=== PATIENT | female | born 1990 | race Caucasian/White ===

== ENCOUNTER 2022-12-08 07:30 | Inpatient (IN) | payer OTHER, SELFPAY ==
[2022-12-08] VITALS (60 sets, daily range): BP systolic 56–142; BP diastolic 45–108; PULSE 52–101; RESP 12–18; TEMP 36.2–37; O2SAT 97–100; BMI 24.2
--- NOTE | 2022-12-08 08:27 | P.PNAN_ITS ---
Anes - Initial Pre Proc Eval Procedure: Operation Date: 12/08/22 12:00 Proposed Procedures p Repeat Section - Karey Valle MD Date/Time: 12/08/22 08:27 Surgeon: Karey Valle MD Pre Op Diagnosis: C/Section Patient Data Age: 32 Gender: F Height: Weight: Last Vital Signs Pulse 101 H 12/08/22 08:16 BP 120/82 12/08/22 08:16 Allergies Allergy/AdvReac Type Severity Reaction Status Date / Time latex Allergy Swelling Verified 11/29/22 13:28 Home Medications Medication Instructions Recorded Confirmed Type Classic 1 tab-cap PO DAILY 11/29/22 11/29/22 History aspirin 81 mg tablet 81 mg PO DAILY 11/29/22 11/29/22 History Patient hx anesthesia problems: none Family hx anesthesia problems: none Results Review: All pre-operative results and documents have been reviewed as part of the pre- operative evaluation. [facility] Past Medical History Medical History (Updated 12/08/22 @ 08:27 by Get Reyes MD) Gestational diabetes mellitus Surgical History Surgical History (Updated 12/08/22 @ 08:27 by Get Reyes MD) History of section Family History Family History Other Unknown family medical history Social History Social History Substance use: never Spiritual care concerns: No Anes - Eval Final PreProcedure Day of Procedure 12/08/22 08:27 Patient weight: normal Heart: regular rate and rhythm Lungs: clear to auscultation Airway: Mallampati scale class 1 Neurological: alert and oriented ASA classification: II Emergent: no Anesthetic plan: proceed Anesthesia type and monitoring: regional spinal and standard monitoring Results Review: All pre-operative results and documents have been reviewed as part of the pre- operative evaluation. Informed Consent: The patient's anesthetic plan and its attendant risks and benefits were discussed with the patient/family/POA. Questions were solicited and answers provided to the satisfaction of the patient/family/POA.
[2022-12-08 08:40] LABS: Basophils Percent Auto 0.5 % (0.2-1.2); Eosinophils Absolute Auto 0.1 K/mm3 (0-0.3); Eosinophils Percent Auto 0.9 % (0-4.4); Hematocrit 32.9 % (37.0-47.0); Hemoglobin 10.7 g/dL (12.0-15.0); Immature Granulocyte Absolute 0.05 K/mm3 (0.00-0.031); Immature Granulocyte Percent A 0.6 % (0-0.5); Lymphocytes Absolute Auto 1.84 K/mm3 (0.9-3.2); Lymphocytes Percent Auto 20.7 % (18.3-44.2); Mean Corpuscular HGB Conc 32.5 g/dl (32-36); Mean Corpuscular Hemoglobin 29.2 pg (26-34); Mean Corpuscular Volume 89.6 fl (80-100); Monocytes Absolute Auto 0.4 K/mm3 (0.1-0.6); Monocytes Percent Auto 4.6 % (2.6-8.5); Neutrophils Absolute Auto 6.5 K/mm3 (1.3-6.7); Neutrophils Percent Auto 72.7 % (45.5-73.1); Platelet Count Result 309 k/mm3 (150-375); Red Blood Count 3.67 M/mm3 (4.2-5.4); Red Cell Distribution Width 13.4 % (11.5-14.5); White Blood Count 8.9 K/mm3 (4.5-10.0)
[2022-12-08] MEDS: LACTATED RINGERS 1,000 ML 125 ML IV CONT (08:44)
--- NOTE | 2022-12-08 09:13 | PM.IMHP ---
H&P: HPI History of Present Illness Date/Time: 12/08/22 09:13 Chief Complaint: Term Narrative: 32-year-old multi with previous who presents at 37 weeks for repeat . She has oligohydramnios, gestational diabetes, placental abnormality. She understands the risk. She understands that injuries may occur the result hospitalization, more surgery, and severe illness. She understands there is risk of hemorrhage infection. Denies any nausea, vomiting, fever, chills. She denies any chest pain shortness of breath. She denies any contractions or loss of fluid. Review of Systems Review of Systems: All systems reviewed & are unremarkable except as noted in HPI and below Constitutional: Constitutional: Denies chills, Denies fatigue, Denies fever(s) and Denies weakness Eyes: Eyes: Denies blurry vision, Denies change in vision, Denies loss of peripheral vision, Denies loss of vision, Denies other visual disturbances and Denies eye pain ENT: Denies vertigo, Denies dizziness, Denies hearing loss, Denies mouth pain, Denies nasal obstruction, Denies neck mass and Denies neck pain Cardiovascular: Cardiovascular: Denies chest pain, Denies diaphoresis, Denies syncope, Denies leg edema and Denies dyspnea Respiratory: Respiratory: Denies chest congestion, Denies cough, Denies hemoptysis, Denies dyspnea and Denies wheezing Gastrointestinal: Gastrointestinal: Denies abdominal pain, Denies constipation, Denies diarrhea, Denies nausea and Denies vomiting Genitourinary: Genitourinary: Denies hematuria, Denies change in libido, Denies nocturia, Denies genital lesions, Denies flank pain and Denies urinary urgency Musculoskeletal: Musculoskeletal: Denies abnormal gait, Denies back pain, Denies myalgias, Denies arthralgias, Denies joint swelling, Denies muscle weakness and Denies neck pain Integumentary/Breasts: Skin/Breast: Denies swelling, Denies breast pain, Denies breast mass, Denies dry skin, Denies nipple discharge, Denies unusual bruising and Denies jaundice Neurologic: Denies Neuro-related abnormal movements, Denies Abnormal speech present, Denies abnormal gait, Denies behavioral changes, Denies confusion, Denies vertigo, Denies dizziness, Denies syncope, Denies loss of vision, Denies memory loss, Denies convulsions and Denies weakness Psychiatric: Psychiatric: Denies abnormal sleep pattern, Denies behavioral changes, Denies change in libido, Denies confusion, Denies depression, Denies anhedonia and Denies memory loss Endocrine: Endocrine: Reports no additional endocrine complaints, Denies change in libido and Denies fatigue Hematologic/Lymphatic: Hematologic/Lymphatic: Reports no additional hematologic/lymphatic complaints Allergic/Immunologic: Allergic/Immunologic: Reports no additional allergic/immunologic complaints and Denies wheezing PMFSH Past Medical History Medical History (Updated 12/08/22 @ 09:17 by Karey Valle MD) Gestational diabetes mellitus Surgical History Surgical History (Updated 12/08/22 @ 09:17 by Karey Valle MD) History of section Family History Family History Other Unknown family medical history Social History Social History Smoking status: Never smoker Substance use: never Lack of Transportation: No Lack of Food: Never True Current Housing: I Have Housing Concerned About Future Housing: No Difficulty Paying Gas/Electric Bills: No Difficulty Paying for Meds: No Currently Unemployed: No Education: Master's Degree or Higher Difficulty w/ Childcare or Family Care: No Spiritual care concerns: No Meds Home Medications and Allergies Home Medications Medication Instructions Recorded Confirmed Type Classic 1 tab-cap PO DAILY 11/29/22 11/29/22 History aspirin 81 mg tablet 81 mg PO DAILY 11/29/22 12/08/22 History Allergies
--- NOTE | 2022-12-08 09:20 | WPDHPUPDATE1 ---
History and Physical Update Update Date/Time: 12/08/22 09:20 History and Physical has been reviewed, including an updated exam of the patient. There are NO changes in the patient's condition. Risks, benefits, and alternatives have been discussed and questions answered. Patient agrees to proceed with procedure.
--- NOTE | 2022-12-08 10:36 | W.PM.PROC2 ---
Procedure Note - Detailed Date of Procedure 12/08/22 Pre-op Diagnosis Previous C/Section Post-op Diagnosis Same Procedure Performed Low-transverse section Surgeon Karey Valle MD Anesthesia Spinal Findings Normal gestational maternal anatomy, average size infant, normal Apgars. Description of Procedure The patient was taken the operating room. She was prepped and draped in dorsal supine position with a leftward tilt. This was done after spinal anesthetic was applied. A low-transverse skin incision was made and carried down till of the fascia with the knife. The fascial incision was made with the knife. The fascial incision was extended laterally with Mckeon scissors. The fascia was tented upward superiorly and inferiorly the rectus muscles were dissected off bluntly. The rectus muscles were the midline. The preperitoneal fat and peritoneum were dissected open bluntly at the superior aspect of the rectus muscles. The peritoneal incision was extended superior and inferior with good position of bladder. The uterine incision was made with a scalpel down to the level of the amniotic cavity. The amniotic cavity was entered bluntly. The was delivered. The cord was clamped and cut and the was handed off to waiting pediatric staff. Cord bloods were obtained. The placenta was removed manually. The uterus was exteriorized. The uterus was cleared of all clots, debris and membranes. The uterus was closed in 0 Vicryl running lock fashion. An imbricating over a was placed along the incision line as well. The uterus was returned to the abdomen. The gutters were cleared of all clots and debris. The fascia was closed with 0 Vicryl running fashion. The subcutaneous tissue was irrigated pinpoint bleeders were cauterized. The skin was closed with subcuticular absorbable jose alberto. The skin incision line was covered with glue. The patient tolerated the procedure well. She has taken recovery room in stable condition. Sponge lap and needle counts were correct x2. Complications No immediate complications Condition Stable Disposition PACU
[2022-12-08 14:19] LABS: Rapid Plasma Reagin Non-Reactive (NonReactive)
--- NOTE | 2022-12-08 15:10 | OBPPTRN ---
Patient transferred to post room # 289 via stretcher accompanied by fob. Support person present and both pt and spouse recipients of such instructions and no barriers to learning identified at this time. PT introductions made and plan of care discussed per post op c section, pain management, breast pumping, daily care activities and baby transferred to [facility]. Pt received such instructions per one to one discussion, mom baby care guide and demonstrations this shift. Oriented to unit, room, information board, rooming in, admission packet and security measures. Patient verbalizes understanding.
[2022-12-08] MEDS: KETOROLAC 30 MG/ML VIAL (*BKC) IV PUSH ×2 (15:57→22:35)
[2022-12-08] MEDS: SIMETHICONE 80 MG TAB.CHEW PO (15:59)
[2022-12-08] MEDS: DOCUSATE SODIUM 100 MG CAPSULE PO (15:59)
[2022-12-08] MEDS: HYDROcodone/acetaminophen (*CRX) 5-325 MG TABLET 1 TAB PO (16:00)
[2022-12-08] MEDS: LANOLIN (LANSINOH) 7.5 GM CREAM 1 APPLIC TOPICAL (16:01)
[2022-12-08] MEDS: LIDOCAINE 5% PATCH 1 PATCH TRANSDERM (18:52)
[2022-12-08] MEDS: DEXTROSE 5%/0.45% SOD CHL 1,000 ML 125 ML IV CONT (20:06)
[2022-12-08] MEDS: HYDROcodone/acetaminophen (*CRX) 10-325 MG TABLET 1 TAB PO (20:19)
[2022-12-08] MEDS: diphenhydrAMINE HCl CAP 25 MG CAPSULE (22:35)
[2022-12-09 04:00] VITALS: BP 104/62; PULSE 79; RESP 16; TEMP 36.6; O2SAT 97
[2022-12-09 05:14] LABS: Basophils Percent Auto 0.3 % (0.2-1.2); Eosinophils Absolute Auto 0.1 K/mm3 (0-0.3); Hematocrit 31.7 % (37.0-47.0); Hemoglobin 10.1 g/dL (12.0-15.0); Immature Granulocyte Absolute 0.07 K/mm3 (0.00-0.031); Immature Granulocyte Percent A 0.6 % (0-0.5); Lymphocytes Absolute Auto 2.26 K/mm3 (0.9-3.2); Lymphocytes Percent Auto 19.5 % (18.3-44.2); Mean Corpuscular HGB Conc 31.9 g/dl (32-36); Mean Corpuscular Hemoglobin 29.3 pg (26-34); Mean Corpuscular Volume 91.9 fl (80-100); Mean Platelet Volume 9.3 fl (7.4-10.4); Monocytes Absolute Auto 0.6 K/mm3 (0.1-0.6); Monocytes Percent Auto 5.1 % (2.6-8.5); Neutrophils Absolute Auto 8.5 K/mm3 (1.3-6.7); Neutrophils Percent Auto 73.5 % (45.5-73.1); Platelet Count Result 273 k/mm3 (150-375); Red Blood Count 3.45 M/mm3 (4.2-5.4); Red Cell Distribution Width 13.4 % (11.5-14.5); White Blood Count 11.6 K/mm3 (4.5-10.0)
[2022-12-09] MEDS: SIMETHICONE 80 MG TAB.CHEW PO (07:30)
[2022-12-09] MEDS: DOCUSATE SODIUM 100 MG CAPSULE PO ×2 (07:30→16:49)
[2022-12-09] MEDS: HYDROcodone/acetaminophen (*CRX) 5-325 MG TABLET 1 TAB PO ×2 (07:30→19:12)
[2022-12-09] MEDS: MULTIVIT/MIN/PREN/FOL AC/IRON TABLET 1 TAB PO (07:30)
[2022-12-09] MEDS: IBUPROFEN 600 MG TABLET PO ×2 (07:30→19:14)
--- NOTE | 2022-12-09 08:42 | WPDANLDPN2 ---
Anes-Prog Note L&D Date/Time: 12/09/22 08:42 Comfortable throughout: section Neuraxial method: spinal Epidural/Spinal procedure site: clean & non-tender Neuro status: Neuro function grossly intact. Cardiovascular status: normal Respiratory status: normal Airway patency: baseline Mental status: baseline Post-Op hydration status: normal Vital Signs: Last Vital Signs Temp 36.6 C 12/09/22 04:00 Pulse 79 12/09/22 04:00 Resp 16 12/09/22 04:00 BP 104/62 12/09/22 04:00 Pulse Ox 97 12/09/22 04:00 O2 Del Method Room Air 12/08/22 18:30 Pain score (VAS): 3 I/O: Intake & Output 12/08/22 12/09/22 12/09/22 23:59 07:59 15:59 Intake Total 1000 Output Total 600 1200 Balance 400 -1200 Post-procedural complaints: none Patient feedback: Patient satisfied with anesthetic care.
--- NOTE | 2022-12-09 08:42 | WPDANLDNPN2 ---
Anes-Prog Note L&D-Neuraxial Date/Time: 12/09/22 08:42 Neuraxial medications: intrathecal PF morphine Opiod-related complaints: none Patient feedback: Patient satisfied with post-operative pain management.
--- NOTE | 2022-12-09 08:52 | P.PNOB_ITS ---
OB - PN: Subj Subjective Date/time seen: 12/09/22 08:52 Interval history: POD#1 s/p RLTCS Baby boy transferred to [facility] for respiratory support, ok for pass to visit baby doing well, minimal bleeding tolerating regular diet voiding spontaneously OB - PN: Obj Data Labs 12/09/22 03:52 Labs: Laboratory Results - last 24 hr 12/08/22 12/09/22 07:58 03:52 WBC 8.9 11.6 H RBC 3.67 L 3.45 L Hgb 10.7 L 10.1 L Hct 32.9 L 31.7 L MCV 89.6 91.9 MCH 29.2 29.3 MCHC 32.5 31.9 L RDW 13.4 13.4 Plt Count 309 273 MPV 9.0 9.3 Immature Gran % (Auto) 0.6 H 0.6 H Neut % (Auto) 72.7 73.5 H Lymph % (Auto) 20.7 19.5 Divide % (Auto) 4.6 5.1 Eos % (Auto) 0.9 1.0 Baso % (Auto) 0.5 0.3 Lymph # (Auto) 1.84 2.26 Divide # (Auto) 0.4 0.6 Eos # (Auto) 0.1 0.1 Baso # (Auto) 0.0 0.0 Abs Immat Gran (auto) 0.05 H 0.07 H Absolute Neuts (auto) 6.5 8.5 H Absolute Nucleated RBC 0.0 0.0 Nucleated RBC % 0.0 0.0 RPR Non-reactive Blood Type B Positive Antibody Screen Positive Antibody Identification Cold Auto AB Antigen Identification Cancelled BILLIE, IgG Interpret Negative BILLIE, Poly Interpret Negative BILLIE, Complement Interp Negative OB - PN A/P Plan day: 1 Plan: routine care Time Spent With Patient Time: Total time spent is greater than 50% in coordination of care (as documented) at patient's floor/unit and/or counseling patient: Review of Systems Review of Systems: All systems reviewed & are unremarkable except as noted in HPI and below Exam Const: General: comfortable, no acute distress, alert and awake Orientati on/consciousness: patient oriented x3 Resp: Effort & Inspection: normal respiratory effort GI: GI Palp: Yes Soft to palpation Other: incision c/d/i
[2022-12-09 09:00] VITALS: BP 118/62; PULSE 64; RESP 14; TEMP 36.7; O2SAT 100
[2022-12-09] MEDS: ASPIRIN 81 MG CHEWABLE TABLET PO (11:00)
[2022-12-09] MEDS: HYDROcodone/acetaminophen (*CRX) 10-325 MG TABLET 1 TAB PO ×3 (11:00→22:13)
--- NOTE | 2022-12-09 11:10 | PC.NURSE ---
1110 Pt left unit in wheelchair accompanied by to travel to [facility] to visit.
[2022-12-09] MEDS: LIDOCAINE 5% PATCH 1 PATCH TRANSDERM (19:15)
[2022-12-09 20:00] VITALS: BP 125/88; PULSE 81; RESP 18; TEMP 36.6; O2SAT 100
[2022-12-10] MEDS: HYDROcodone/acetaminophen (*CRX) 5-325 MG TABLET 1 TAB PO ×2 (01:16→04:28)
--- NOTE | 2022-12-10 08:00 | P.PNOB_ITS ---
OB - PN: Subj Subjective Date/time seen: 12/10/22 08:00 Interval history: POD#2 s/p RLTCS Baby boy doing well at [facility] for resp support doing well, minimal bleeding tolerating regular diet voiding spontaneously desires d/c home today OB - PN: Obj Data Labs 12/09/22 03:52 OB - PN A/P Plan day: 2 Plan: discharge home Comments: follow up in 1 week for incision check Time Spent With Patient Time: Total time spent is greater than 50% in coordination of care (as documented) at patient's floor/unit and/or counseling patient: Review of Systems Review of Systems: All systems reviewed & are unremarkable except as noted in HPI and below Exam Const: General: comfortable, no acute distress, alert and awake Resp: Effort & Inspection: normal respiratory effort GI: GI Palp: Yes Soft to palpation Other: incision c/d/i
--- NOTE | 2022-12-10 08:03 | PM.OBDSVD ---
DS: Admitting Diagnosis Discharge Date 12/10/22 Admitting Diagnosis repeat c section, oligohydramnios OB - DS: Summary OB Procedures : None OB Procedures Intrapartum: OB Procedures: : None Peripartum Data Procedures: Procedures Operation Date: 12/08/22 12:00 Actual Procedure Side Surgeon p Repeat Section Not Applicable Karey Valle MD Time Spent with Patient Time attestation: Total time spent providing and/or coordinating discharge services: Discharge Plan Discharge Attending physician on discharge: Alfonzo Mead Discharging Clinician: Alfonzo Mead Patient Disposition: Home, Self-Care Activity: may shower, may drive after 2 weeks, as tolerated and pelvic rest Diet: as tolerated Wound Care Instructions: incision open to air Patient Instructions: Antibiotic Form Stand Alone Forms: General Discharge Information Follow-up/Referrals: Karey Valle MD [Physician] - 1 Week (Incision check) Discharge Medications: New hydrocodone-acetaminophen 5-325 mg Tablet 1 tablet PO Q3H PRN (Reason: Moderate Pain (4-6)) Qty: 20 0RF Continued Classic 1 tab-cap PO DAILY Discontinued Adult Aspirin 81 mg Tablet 81 mg PO DAILY Date of admission: 12/08/22 07:30 Primary Care Provider: PHYSICIAN,HEALTH INFORMATION SYSTEMS TECHNICIAN Admitting Provider: Karey Valle Attending physician on admission: Karey Valle Condition: Stable
[2022-12-10] MEDS: HYDROcodone/acetaminophen (*CRX) 10-325 MG TABLET 1 TAB PO (08:30)
[2022-12-10] MEDS: IBUPROFEN 600 MG TABLET PO (08:30)
[2022-12-10] MEDS: SIMETHICONE 80 MG TAB.CHEW PO (08:30)
[2022-12-10] MEDS: MULTIVIT/MIN/PREN/FOL AC/IRON TABLET 1 TAB PO (08:30)
[2022-12-10] MEDS: DOCUSATE SODIUM 100 MG CAPSULE PO (08:30)
[2022-12-10] MEDS: ASPIRIN 81 MG CHEWABLE TABLET PO (08:30)
[2022-12-10 10:03] VITALS: BP 134/79; PULSE 99; RESP 16; TEMP 36.7; O2SAT 100
--- NOTE | 2022-12-12 08:04 | P.PNOB_ITS ---
OB - Triage/Final Diagnosis Visit Information Comments/Additional reasons for admission: I have assessed the risk for this patient, Bro Lara, and determined that she would benefit from observation care. Evaluation Laboratory results: Laboratory Tests 12/08/22 12/09/22 07:58 03:52 WBC 8.9 11.6 H RBC 3.67 L 3.45 L Hgb 10.7 L 10.1 L Hct 32.9 L 31.7 L MCV 89.6 91.9 MCH 29.2 29.3 MCHC 32.5 31.9 L RDW 13.4 13.4 Plt Count 309 273 MPV 9.0 9.3 Immature Gran % (Auto) 0.6 H 0.6 H Neut % (Auto) 72.7 73.5 H Lymph % (Auto) 20.7 19.5 Loving % (Auto) 4.6 5.1 Eos % (Auto) 0.9 1.0 Baso % (Auto) 0.5 0.3 Lymph # (Auto) 1.84 2.26 Loving # (Auto) 0.4 0.6 Eos # (Auto) 0.1 0.1 Baso # (Auto) 0.0 0.0 Abs Immat Gran (auto) 0.05 H 0.07 H Absolute Neuts (auto) 6.5 8.5 H Absolute Nucleated RBC 0.0 0.0 Nucleated RBC % 0.0 0.0 RPR Non-reactive Blood Type B Positive Antibody Screen Positive Antibody Identification Cold Auto AB Antigen Identification Cancelled BILLIE, IgG Interpret Negative BILLIE, Poly Interpret Negative BILLIE, Complement Interp Negative Final Diagnosis (1) History of section: Code(s): Z98.891 - History of uterine scar from previous surgery Status: Acute (2) Oligohydramnios: Code(s): O41.00X0 - Oligohydramnios, unspecified trimester, not applicable or unspecified Status: Acute
== END 2022-12-10 10:50 | disposition home or self-care (01) | DRG 787 ==
LOC: ANHOB2 12-10 10:11 → ANHLDR 12-12 08:01 → ANHOB2 12-12 08:01
PROVIDERS: Admitting Provider Obstetrics & Gynecology; Visit Provider Obstetrics & Gynecology
PROC: 10D00Z1 Extraction of Products of Conception, Low, Open Approach (ICD-10-PCS; CPT 59514; principal; 2022-12-08 12:00)
DX: O34.211 Maternal care for low transverse scar from previous cesarean delivery (principal); O41.03X0 Oligohydramnios, third trimester, not applicable or unspecified; Z37.0 Single live birth; Z3A.37 37 weeks gestation of pregnancy; O24.429 Gestational diabetes mellitus in childbirth, unspecified control; O43.93 Unspecified placental disorder, third trimester
CPT/HCPCS: 36415; 81479; 85025; 86592; 86850; 86860; 86870; 86880; 86900; 86901; 86902; 86971; A9270; J1100; J1885; J2274; J2405; J7120

== ENCOUNTER 2023-01-03 04:59 | Emergency (ER) | payer OTHER, SELFPAY ==
[2023-01-03 05:20] LABS: Hematocrit 48.9 % (37.0-47.0); Hemoglobin 15.6 g/dL (12.0-15.0); Mean Corpuscular HGB Conc 31.9 g/dl (32-36); Mean Corpuscular Hemoglobin 28.3 pg (26-34); Mean Corpuscular Volume 88.6 fl (80-100); Mean Platelet Volume 7.9 fl (7.4-10.4); Platelet Count Result 450 k/mm3 (150-375); Red Blood Count 5.52 M/mm3 (4.2-5.4); Red Cell Distribution Width 13.3 % (11.5-14.5); White Blood Count 8.3 K/mm3 (4.5-10.0)
[2023-01-03 05:24] VITALS: BP 105/65; PULSE 125; RESP 15; TEMP 37.6; O2SAT 100
[2023-01-03 05:32] LABS: Alanine Aminotransferase 21 U/L (6-35); Albumin Level 4.8 g/dL (3.5-5.1); Alkaline Phosphatase 157 U/L (38-126); Anion Gap 16 mmol/L (8-16); Aspartate Amino Transferase 22 U/L (14-36); Bilirubin,Total 1.1 mg/dL (0.2-1.3); Blood Urea Nitrogen 16 mg/dL (7-17); Calcium 9.8 mg/dL (8.4-10.2); Carbon Dioxide 20 mmol/L (22-30); Chloride 104 mmol/L (98-107); Estimated CRCL calculation 78 ml/min; Estimated Glomerular Filt Rate > 60; Glucose 167 mg/dL (65-110); Lipase 79 U/L (23-300); Potassium 4.4 mmol/L (3.4-5.0); Sodium 140 mmol/L (137-145)
[2023-01-03 05:56] LABS: Band Neutrophils Percent 34 % (0-6); Burr Cells 1+ (NORMAL); Eosinophils Absolute Manual 0.08 K/mm3 (0.02-0.5); Eosinophils Percent Manual 1 % (0-4); Lymphocytes Absolute Manual 0.49 K/mm3 (1.1-4.5); Monocytes Absolute Manual 0.33 K/mm3 (0.1-0.90); Monocytes Percent Manual 4 % (3-9); Neutrophils Absolute Manual 7.38 K/mm3 (1.7-7.2); Neutrophils Percent Manual 55 % (46-73); Platelet Clumps Present; Platelet Estimate Increased (Adequate); Schistocytes None Seen (NORMAL); Tear Drop Cells 1+ (NORMAL); Total Cells Counted 100
[2023-01-03 07:00] VITALS: BP 90/64; PULSE 134; RESP 17; O2SAT 99
[2023-01-03 07:49] LABS: Appearance Urine Cloudy (Clear); Bacteria Urine None Seen /hpf; Bilirubin Urine 1+ (Negative); Blood Urine 2+ (Negative); Color Urine Dark Yellow (Yellow); Glucose Urine UA Negative (Negative); Ketones Urine Trace mg/dL (Negative); Leukocyte Esterase Ur Trace LEU/UL (Negative); Nitrate Urine Negative (Negative); Non Pathogenic Casts 0-2; Protein Urine 3+ mg/dL (Negative); Specific Grav Ur 1.028 (1.001-1.035); Squamous Epithelial Cell Urine Occasional /hpf (Few); WBC Urine 0-5 /hpf; pH Urine 5.5 (5.0-9.0)
[2023-01-03 08:00] VITALS: BP 102/79; PULSE 128; RESP 16; O2SAT 100
[2023-01-03 08:01] LABS: Add Urine Microscopic? YES
[2023-01-03] MEDS: ONDANSETRON INJ 4 MG/2 ML VIAL IV PUSH (08:21)
--- NOTE | 2023-01-03 08:26 | PC.NURSE ---
ns bolus infusing without difficulty. no distress noted. pt slowly taking po.
--- NOTE | 2023-01-03 09:48 | ED.GENADULT ---
HPI - General Adult General Chief complaint: Nausea/Vomiting/Diarrhea Stated complaint: n/v/d Time Seen by Provider: 01/03/23 06:57 History of Present Illness HPI narrative: Patient is a 32-year-old female who presents here with nausea/vomiting/diarrhea. Sudden onset last night after eating a cheeseburger at [facility]. She reports it did not taste right symptoms began shortly afterwards. No other sick contacts. No one showed her food. No blood. She has had persistent vomiting as well parent the vomiting and diarrhea have slowed said she can not come to the ER. She feels diffusely weak. She is currently is had decreased output. Patient did have a previously. No issues with her scar. No concerns about vaginal discharge or bleeding. Related Data Home Medications Medication Instructions Recorded Confirmed Classic 1 tab-cap PO DAILY 11/29/22 11/29/22 Allergies Allergy/AdvReac Type Severity Reaction Status Date / Time latex Allergy Swelling Verified 01/03/23 07:07 Review of Systems Review of Systems: All systems reviewed & are unremarkable except as noted in HPI and below Constitutional: Constitutional: Reports chills and Reports fatigue ENT: Denies nasal congestion and Denies sore throat Cardiovascular: Cardiovascular: Denies chest pain, Denies rapid heart rate and Denies radiating jaw, neck or arm pain Gastrointestinal: Gastrointestinal: Reports abdominal pain, Reports diarrhea, Reports nausea and Reports vomiting Genitourinary: Genitourinary: Reports no additional female genitourinary complaints [facility] Past Medical History Medical History (Updated 01/03/23 @ 09:51 by Valentin Vela MD) Gestational diabetes mellitus Surgical History Surgical History (Updated 12/08/22 @ 09:17 by Karey Valle MD) History of section Family History Family History Other Unknown family medical history Social History Social History Smoking status: Never smoker Substance use: never Lack of Transportation: No Lack of Food: Never True Current Housing: I Have Housing Concerned About Future Housing: No Difficulty Paying Gas/Electric Bills: No Difficulty Paying for Meds: No Currently Unemployed: No Education: Master's Degree or Higher Difficulty w/ Childcare or Family Care: No Spiritual care concerns: No Exam Narrative: GENERAL: Well-appearing, well-nourished, and in no acute distress. HEAD: Normocephalic, atraumatic. ENT: Mucous membranes moist. CHEST: Clear to auscultation. No respiratory distress. HEART: Tachycardic and regular. Normal peripheral pulses. ABDOMEN: Soft, nontender, nondistended. EXTREMITIES: Normal range of motion. No edema. SKIN: Warm, dry, no rash. NEURO: Alert and oriented x3. PSYCH: Normal mood and affect. Course Course Emergency Course: Patient resting comfortably. She has had 2 L of IV fluid as well as for Zofran. She feels markedly improved. She has been up and ambulatory without issue. Suspect food-borne illness. Discharge home with supportive care. Vital Signs Vital signs: Vital Signs Temperature 99.7 F H 01/03/23 05:24 Pulse Rate 125 H 01/03/23 05:24 Respiratory Rate 15 01/03/23 05:24 Blood Pressure 105/65 01/03/23 05:24 Pulse Oximetry 100 01/03/23 05:24 Temperature 99.7 F H 01/03/23 05:24 Pulse Rate 128 H 01/03/23 08:00 Respiratory Rate 16 01/03/23 08:00 Blood Pressure 102/79 01/03/23 08:00 Pulse Oximetry 100 01/03/23 08:00 Medical Decision Making Vital Signs Vital Signs: Vital Signs Temperature 99.7 F H 01/03/23 05:24 Pulse Rate 125 H 01/03/23 05:24 Respiratory Rate 15 01/03/23 05:24 Blood Pressure 105/65 01/03/23 05:24 Pulse Oximetry 100 01/03/23 05:24 Temperature 99.7 F H 01/03/23 05:24 Pulse Rate 128 H 01/03/23
--- NOTE | 2023-01-03 09:49 | PC.NURSE ---
Patient ambulatory with this RN around nurses station without assistance and with a steady gait. Patient denies any dizziness. Patient reports she is feeling much better . EDP made aware.
[2023-01-03 10:06] VITALS: BP 105/64; PULSE 64; RESP 16; O2SAT 97
== END 2023-01-03 10:07 | disposition home or self-care (01) ==
PROVIDERS: Emergency Medicine; Emergency Provider Emergency Medicine
DX: K52.9 Noninfective gastroenteritis and colitis, unspecified (principal)
CPT/HCPCS: 36415; 80053; 81001; 81025; 83690; 85025; 96361; 96374; 99284; J2405; J7030